=== PATIENT | male | born 1945 | race Caucasian/White ===

== ENCOUNTER → 2022-03-01 | Outpatient (CLI) | payer OTHER | END | disposition home or self-care (01) | LOC: SHCH 09:24 | PROVIDERS: ATTEND Internal Medicine Cardiovascular Disease | DX: I82.412 Acute embolism and thrombosis of left femoral vein (principal); I82.511 Chronic embolism and thrombosis of right femoral vein; Z95.1 Presence of aortocoronary bypass graft | CPT/HCPCS: 93970 ==